=== PATIENT | male | born 1935 | race Caucasian/White ===

== ENCOUNTER 2023-05-21 05:36 | Inpatient (IN) | payer MEDICARE, OTHER ==
[2023-05-13 15:36] LABS: BASOPHILS # (AUTO) 0.1 X10'3 (0-0.2); EOSINOPHILS # (AUTO) 0.3 X10'3 (0-0.9); EOSINOPHILS % (AUTO) 5.9 % (0-6); LYMPHOCYTES # (AUTO) 1.2 X10'3 (1.1-4.8); LYMPHOCYTES % (AUTO) 22.1 % (21-51); MEAN CORPUSCULAR HEMOGLOBIN 31.6 PG (27.0-31.0); MEAN CORPUSCULAR HGB CONC 34.3 g/dL (33.0-36.5); MEAN CORPUSCULAR VOLUME 92.4 FL (78-98); MEAN PLATELET VOLUME 7.4 FL (7.4-10.4); MONOCYTES # (AUTO) 0.8 X10'3 (0-0.9); NEUTROPHILS # (AUTO) 3.1 X10'3 (1.8-7.7); PRE OP HEMOGLOBIN 11.7 g/dL (14.0-17.9); PRE OP PLATELET COUNT 240 X10'3 (140-440); PRE OP WHITE BLOOD COUNT 5.4 10'3 (4.8-10.8); RED BLOOD COUNT 3.69 X10'6 (4.70-6.10); RED CELL DISTRIBUTION WIDTH 14.1 % (11.5-14.5)
[2023-05-13 15:49] LABS: ALBUMIN 3.7 G/DL (3.4-5.0); ALBUMIN/GLOBULIN RATIO 0.9 (1.1-1.5); ALKALINE PHOSPHATASE 79 IU/L (46-116); BLOOD UREA NITROGEN 23 MG/DL (7-18); BUN/CREATININE RATIO 13.9 (10.0-20.0); CALCIUM 9.3 MG/DL (8.5-10.1); CHLORIDE 95 MMOL/L (99-107); CREATININE 1.65 MG/DL (0.60-1.10); PRE OP ALT 16 U/L (30-65); PRE OP ANION GAP 8 (8-16); PRE OP AST 31 U/L (10-37); PRE OP BILIRUB, TOTAL 0.5 MG/DL (0.0-1.0); PRE OP GLUCOSE 111 MG/DL (70-104); PRE OP POTASSIUM 4.4 MMOL/L (3.4-5.1); TOTAL CARBON DIOXIDE 25.2 MMOL/L (24-32); TOTAL PROTEIN 7.6 G/DL (6.4-8.2); eGFR 40 ML/MIN
[2023-05-13 15:51] LABS: PRE OP SODIUM 128 MMOL/L (135-145)
[~2023-05-21] VITALS: Ht 165.1 cm; Wt 83.7 kg
[2023-05-21] VITALS (38 sets, daily range): BP systolic 130–185; BP diastolic 71–103; PULSE 44–85; RESP 8–21; TEMP 96.8–98.1; O2SAT 64–99
[~2023-05-21 05:36] MED LIST: CARV3.122 PO; DOCUMENT DATE & TIME OF BETA-BLOCKER PO ONE; HYDR12.55 PO; NABU-141 PO; OMEP20CA16 PO; VALS160T2 PO; cefazolin 2gm/D5W 100mL 100 ML IV ONE; famotidine 20mg tablet PO ONE; ringers solution, lacted 1,000 ML IV SCH; tranexamic acid inj. 1,000 MG in normal saline IV soln 100ML IV ONE; vancomycin 1,500 MG in NS 300ml IV soln IV ONE
[2023-05-21 06:41] LABS: ISTAT CREATININE 1.4 mg/dL (0.8-1.3); ISTAT HGB 11.9 g/dl (14.0-17.9); ISTAT IONIZED CALCIUM 1.29 mmol/L (1.03-1.32); ISTAT K 4.4 mmol/L (3.5-5.1)
[2023-05-21] MEDS ORDERED: vancomycin 1,000mg inj ONE (06:41)
[2023-05-21] MEDS ORDERED: epiNEPHrine 1 mg/ml inj ONE (06:47)
[2023-05-21] MEDS ORDERED: morphine 10mg/ml inj. ONE (06:49)
[2023-05-21] MEDS ORDERED: ROPIVAcaine 0.5% (5mg/ml) 30ml vial ONE ×2 (06:49→10:57)
[2023-05-21] MEDS ORDERED: fentaNYL/PF 50MCG/1 ML 2ML syringe ONE (07:43)
[2023-05-21] MEDS ORDERED: MIDAZolam 1 MG/ML 5ML VIAL ONE (08:06)
[2023-05-21] MEDS ORDERED: morphine 2 MG/ML inj. syringe IV PRN (09:30)
[2023-05-21] MEDS ORDERED: ondansetron/PF 4mg/2ml inj IV PRN ×2 (09:30→11:20)
[2023-05-21] MEDS ORDERED: proCHLORperazine 10 MG/2 ml inj IV PRN (09:30)
[2023-05-21] MEDS ORDERED: morphine 4 MG/ML inj SYRINge IV PRN (09:30)
[2023-05-21] MEDS ORDERED: ringers solution, lacted 1,000 ML IV SCH (09:30)
[2023-05-21] MEDS ORDERED: meperidine/PF 25mg/ml syringe IV PRN ×2 (09:30)
[2023-05-21] MEDS ORDERED: propofol inj 20 ML IV ONE ×2 (10:57)
--- NOTE | 2023-05-21 11:01 | NUR ---
Received from OR via BED, accompanied by Anesthesiologist ALANNA and report given by Anesthesiolgist. PT IS AWAKE, MAINTAINING SAO2 AT 99% ON RA. MONITOR SB - RATE 48 OR ABOVE. VSS. DRESSING TO LLE ENCASED IN LEG WRAP. POWDER PACK ICE APPLIED. DENIES PAIN. WILL CONTINUE TO MONITOR AND TX NEEDED. MOVING UPPER EXTREMITIES WELL. 20G IV TO R OUTER ELBOW PATENT W/ LR RUNNING 100 ML/HR. FC IN PLACE DRAINING CLEAR LIGHT YELLOW URINE. 200 ML OUT OF OR. Addendum: 05/21/23 at 1131 by Ben Leon RN Amended: Links added. Addendum: 05/21/23 at 1909 by Ben Leon RN CATHETER FOR ON Q PUMP IN PLACE TO L UPPER THIGH, SECURED W/ TEGADERM. D&I. SCD TO RLE.
[2023-05-21] MEDS ORDERED: acetaminophen 325mg tablet PO PRN (11:20)
[2023-05-21] MEDS ORDERED: magnesium hydroxide 30ml (MOM) UD suspension PO PRN (11:20)
[2023-05-21] MEDS ORDERED: HYDROmorphone inj. 0.5 MG/0.5 ML DISP.SYRIN IV PRN (11:20)
[2023-05-21] MEDS ORDERED: bisacodyl 10mg suppository rectal RC PRN (11:20)
[2023-05-21] MEDS ORDERED: naloxone 0.4 mg/ml inj IV PRN (11:20)
[2023-05-21] MEDS ORDERED: diphenhydrAMINE 25mg capsule PO PRN ×2 (11:20)
[2023-05-21] MEDS: ROPIVAcaine 0.2% (10 MG/5 ML) BOLUS INJECTION ADDCANAL PRN (11:45)
[2023-05-21] MEDS: ROPIVAcaine 0.2%/PF PUMP/bolus 545 ML ADDCANAL SCH (12:26)
[2023-05-21] MEDS ORDERED: TRANEXAMIC ACID IV ONE (14:30)
[2023-05-21] MEDS ORDERED: NORMAL SALINE IV ONE (14:30)
[2023-05-21] MEDS: meperidine/PF 25mg/ml syringe IV PRN ×2 (14:49→16:17)
[2023-05-21] MEDS: potassium Cl 20mEq in NS 1,000 ML IV SCH ×4 (14:50→20:06)
[2023-05-21] MEDS: acetaminophen 325mg tablet PO SCH ×2 (14:52→20:06)
[2023-05-21] MEDS: gabapentin 300mg capsule PO SCH ×2 (14:52→21:23)
[2023-05-21] MEDS: oxyCODONE IR 5mg (immed. release) tablet PO PRN ×2 (16:39→22:29)
--- NOTE | 2023-05-21 17:31 | NUR ---
PT AWAKE AND ALERT THROUGHOUT RR STAY. EXTENDED STAY REQUIRED UNTIL BED AVAILABLE. MAINTAINED SAO2 ON RA AT >96%. ON Q PUMP INITIATED AND PT GIVEN INSTRUCTIONS RE: USE. NO PAIN UNTIL 1430 - PAIN INCREASED TO 4 AND MEDICATED W/ DEMEROL 12.5 MG. EMESIS AT 1530. PT HAD EATEN A LIGHT MEAL AND TAKEN TYLENOL AND NEURONTIN. CONTINUED TO HAVE PAIN - MEDICATED W/ OXYCODONE PRIOR TO TRANSFER. TRANSXAMIC ACID INFUSED ORDERED. L LEG WRAP W/ ICE INPLACE D&I. MONITOR SB DURING INTIAL HOURS IN RR, W/ OCCASIONAL ONE BEAT PAUSES. HR INCREASED TO WNL W/OUT PAUSES BY TIME OF TRANSFER. SCD TO RLE. TRANSFERRED TO 4012 AT 1731 PER GATITO SAAB. VERBAL REPORT TO KINA SAAB.
--- NOTE | 2023-05-21 17:52 | NUR ---
Received pt from pacu. Pt A&Ox4, on room air, on q pump at 10ml/hr. Oriented pt to room and call light.
--- NOTE | 2023-05-21 18:00 | NUR ---
Patient in room [facility]TH[facility] 4012. I have received report from [facility] Garcia and had the opportunity to ask questions and assume patient care.
[2023-05-21] MEDS: ceFAZolin/D5W- 1GM premix 50 ML IV SCH ×2 (18:11→23:55)
--- NOTE | 2023-05-21 18:35 | NUR ---
Problems reprioritized. Patient report given, questions answered & plan of care reviewed with Jie.
[2023-05-21] MEDS: HYDROmorphone 1 mg/ml syringe IV PRN ×2 (19:25→23:25)
[2023-05-21] MEDS ORDERED: vancomycin/NS 1 GM ADD-VANTAGE 250 ML IV SCH (20:00)
[2023-05-21] MEDS: sennosides 8.6mg tablet PO SCH (21:23)
[2023-05-22] VITALS (8 sets, daily range): BP systolic 130–179; BP diastolic 79–95; PULSE 66–96; RESP 16–18; TEMP 97.3–98.4; O2SAT 90–100
[2023-05-22] MEDS: acetaminophen 325mg tablet PO SCH ×4 (01:49→21:03)
[2023-05-22] MEDS: oxyCODONE IR 5mg (immed. release) tablet PO PRN ×2 (02:40→08:43)
[2023-05-22] MEDS: ROPIVAcaine 0.2% (10 MG/5 ML) BOLUS INJECTION ADDCANAL PRN (03:04)
[2023-05-22] MEDS: HYDROmorphone 1 mg/ml syringe IV PRN ×2 (05:19→10:07)
--- NOTE | 2023-05-22 06:11 | NUR ---
Problems reprioritized. Patient report given, questions answered & plan of care reviewed with ANI Ogden.
[2023-05-22] MEDS: gabapentin 300mg capsule PO SCH ×3 (07:20→21:02)
[2023-05-22] MEDS: HYDROchlorothiazide 12.5mg capsule PO SCH (08:42)
[2023-05-22] MEDS: potassium Cl 20mEq in NS 1,000 ML IV SCH (08:43)
[2023-05-22] MEDS: enoxaparin 40mg/0.4ml syringe SQ SCH (08:44)
[2023-05-22] MEDS: carVEDilol 3.125mg tablet PO SCH ×2 (08:44→21:02)
--- NOTE | 2023-05-22 11:57 | NUR ---
Joint surgery consult: Pt is s/p knee surgery per EMR. Per EMR pt has a 10 out of 10 pain intensity therefore not appropriate for high protein nutrition education discussion at this time. Due to short staffing placed high protein nutrition handout in pt's chart with RD contact information. Will remain available for any nutrition questions or concerns. Addendum: 05/22/23 at [address] Amended: Links added.
--- NOTE | 2023-05-22 13:34 | NUR ---
charting reviewed with Student RN Addendum: 05/22/23 at 1335 by Federico Garner INSTRUCTOR [facility] Amended: Links added.
[2023-05-22] MEDS: losartan 50mg tablet PO SCH (16:41)
--- NOTE | 2023-05-22 17:45 | NUR ---
BRUSH CLEARING LABORER documentation: I have reviewed and agree with all interventions, assessments performed and documented by ANI Ogden and relinquish all care to her.
[2023-05-22] MEDS: sennosides 8.6mg tablet PO SCH (21:03)
[2023-05-22] MEDS: celeCOXIB 100mg capsule PO SCH (21:03)
[2023-05-22] MEDS: pantoprazole 40mg Tablet.DR PO SCH (21:04)
[2023-05-23] MEDS: potassium Cl 20mEq in NS 1,000 ML IV SCH ×2 (01:34→10:15)
[2023-05-23] MEDS: acetaminophen 325mg tablet PO SCH ×2 (01:36→07:19)
[2023-05-23] MEDS: oxyCODONE IR 5mg (immed. release) tablet PO PRN ×4 (01:37→19:54)
--- NOTE | 2023-05-23 05:45 | NUR ---
PT DECLINING TO HAVE GONZALEZ CATHETER REMOVED UNTIL SEEN BY PHYSICAL THERAPY
[2023-05-23 06:00] VITALS: BP 150/83; PULSE 98; RESP 16; TEMP 97.1; O2SAT 94
--- NOTE | 2023-05-23 06:35 | NUR ---
Patient in room [facility]TH[facility] 4012. I have received report from PEDRO LAW and had the opportunity to ask questions and assume patient care.
[2023-05-23] MEDS: enoxaparin 40mg/0.4ml syringe SQ SCH (07:14)
[2023-05-23] MEDS: HYDROchlorothiazide 12.5mg capsule PO SCH (07:15)
[2023-05-23] MEDS: gabapentin 300mg capsule PO SCH ×3 (07:16→20:48)
[2023-05-23] MEDS: celeCOXIB 100mg capsule PO SCH ×2 (07:16→19:53)
[2023-05-23] MEDS: losartan 50mg tablet PO SCH (07:16)
[2023-05-23] MEDS: carVEDilol 3.125mg tablet PO SCH ×2 (07:16→19:54)
[2023-05-23] MEDS: HYDROmorphone 1 mg/ml syringe IV PRN ×2 (09:06→15:43)
--- NOTE | 2023-05-23 09:08 | NUR ---
ERLINDA GONZALEZ, PT. TOLERATED WELL. 250ML URINE DRAINED. WILL MONITOR FOR RETENTION.
[2023-05-23] MEDS: ROPIVAcaine 0.2%/PF PUMP/bolus 545 ML ADDCANAL SCH (09:30)
[2023-05-23 10:00] VITALS: BP 133/71; PULSE 80; RESP 16; TEMP 97.4; O2SAT 94
[2023-05-23] MEDS ORDERED: acetaminophen 325mg tablet PO PRN (11:20)
[2023-05-23 12:12] VITALS: RESP 14; O2SAT 94
[2023-05-23 18:00] VITALS: BP 150/87; PULSE 103; RESP 17; TEMP 97.3; O2SAT 93
--- NOTE | 2023-05-23 18:29 | NUR ---
Problems reprioritized. Patient report given to paige SAAB, questions answered & plan of care reviewed with .
--- NOTE | 2023-05-23 18:38 | NUR ---
Patient in room [facility]TH[facility] 4012. I have received report from LILLIAN SAAB and had the opportunity to ask questions and assume patient care.
[2023-05-23 20:30] VITALS: RESP 17; O2SAT 93
[2023-05-23] MEDS: sennosides 8.6mg tablet PO SCH (20:48)
[2023-05-23] MEDS: pantoprazole 40mg Tablet.DR PO SCH (20:48)
[2023-05-24] MEDS: oxyCODONE IR 5mg (immed. release) tablet PO PRN ×4 (02:14→19:19)
[2023-05-24 06:00] VITALS: BP 115/74; PULSE 93; RESP 18; TEMP 98.5; O2SAT 92
--- NOTE | 2023-05-24 06:35 | NUR ---
Patient in room ORTH[facility] 4012. I have received report from TAMARA SAAB and had the opportunity to ask questions and assume patient care.
--- NOTE | 2023-05-24 06:36 | NUR ---
Problems reprioritized. Patient report given, questions answered & plan of care reviewed with LILLIAN SAAB.
[2023-05-24] MEDS: ROPIVAcaine 0.2% (10 MG/5 ML) BOLUS INJECTION ADDCANAL PRN (07:49)
[2023-05-24] MEDS: HYDROchlorothiazide 12.5mg capsule PO SCH (07:49)
[2023-05-24] MEDS: gabapentin 300mg capsule PO SCH ×3 (07:49→21:47)
[2023-05-24] MEDS: enoxaparin 40mg/0.4ml syringe SQ SCH (07:53)
[2023-05-24] MEDS: celeCOXIB 100mg capsule PO SCH ×2 (07:54→19:18)
[2023-05-24] MEDS: carVEDilol 3.125mg tablet PO SCH ×2 (07:54→19:18)
[2023-05-24] MEDS: losartan 50mg tablet PO SCH (07:54)
[2023-05-24 09:48] VITALS: RESP 18; O2SAT 92
[2023-05-24 10:00] VITALS: BP 114/69; PULSE 93; RESP 18; TEMP 97.9; O2SAT 94
[2023-05-24 18:00] VITALS: BP 130/81; PULSE 96; RESP 20; TEMP 97.7; O2SAT 100
--- NOTE | 2023-05-24 18:38 | NUR ---
Problems reprioritized. Patient report given TO TAMARA SAAB, questions answered & plan of care reviewed with .
--- NOTE | 2023-05-24 19:09 | NUR ---
Patient in room [facility]TH[facility] 4012. I have received report from LILLIAN SAAB and had the opportunity to ask questions and assume patient care.
[2023-05-24] MEDS: sennosides 8.6mg tablet PO SCH (21:47)
[2023-05-24] MEDS: pantoprazole 40mg Tablet.DR PO SCH (21:47)
[2023-05-24 22:00] VITALS: BP 115/75; PULSE 102; RESP 16; TEMP 98.8; O2SAT 95
--- NOTE | 2023-05-25 06:40 | NUR ---
Problems reprioritized. Patient report given, questions answered & plan of care reviewed with DEWAYNE LAW.
[2023-05-25] MEDS: oxyCODONE IR 5mg (immed. release) tablet PO PRN ×2 (07:58→13:01)
[2023-05-25] MEDS: celeCOXIB 100mg capsule PO SCH (07:59)
[2023-05-25] MEDS: gabapentin 300mg capsule PO SCH ×2 (07:59→13:00)
[2023-05-25] MEDS: HYDROchlorothiazide 12.5mg capsule PO SCH (07:59)
[2023-05-25] MEDS: carVEDilol 3.125mg tablet PO SCH (07:59)
[2023-05-25] MEDS: losartan 50mg tablet PO SCH (07:59)
[2023-05-25] MEDS: enoxaparin 40mg/0.4ml syringe SQ SCH (08:00)
[2023-05-25 10:00] VITALS: BP 138/87; PULSE 78; RESP 17; TEMP 97.7; O2SAT 78
[2023-05-25 13:01] VITALS: RESP 17
--- NOTE | 2023-05-25 18:06 | NUR ---
FLEXOGRAPHIC PRESS SET UP OPERATOR documentation: I have reviewed and agree with all interventions, assessments performed and documented by Aziza LAW.
== END 2023-05-25 16:57 | DRG 470 ==
LOC: PAS 05:36 → EDSTATUS 07:30 → ORTHO 4S 11:21
PROVIDERS: ADMIT Orthopaedic Surgery; ATTEND Orthopaedic Surgery
PROC: 0JH80WZ Insertion of Totally Implantable Vascular Access Device into Abdomen Subcutaneous Tissue and Fascia, Open Approach (ICD-10-PCS; 2023-05-21)
PROC: 0SRD0J9 Replacement of Left Knee Joint with Synthetic Substitute, Cemented, Open Approach (ICD-10-PCS; principal; 2023-05-21 07:36)
DX: M17.12 Unilateral primary osteoarthritis, left knee (principal); Z96.651 Presence of right artificial knee joint; I10 Essential (primary) hypertension
CPT/HCPCS: 36415; 73560; 80047; 80053; 82948; 85025; 87081; 97110; 97116; 97161; 97530; 97535; A4215; A6253; A6258; A6446; A6449; A7000; C1713; C1758; C1776; C9250; G0378; J0171; J0690; J0780; J1170; J1650; J2175; J2250; J2274; J2405; J2704; J2795; J3010; J3370; J3480; J3490; J7120

== ENCOUNTER 2023-06-02 11:01 | Inpatient (IN) | payer MEDICARE, OTHER ==
[~2023-06-02] VITALS: Ht 172.7 cm; Wt 85.7 kg
[~2023-06-02 11:01] MED LIST changes: -DOCUMENT DATE & TIME OF BETA-BLOCKER PO ONE; -cefazolin 2gm/D5W 100mL 100 ML IV ONE; -famotidine 20mg tablet PO ONE; -ringers solution, lacted 1,000 ML IV SCH; -tranexamic acid inj. 1,000 MG in normal saline IV soln 100ML IV ONE; -vancomycin 1,500 MG in NS 300ml IV soln IV ONE
[2023-06-02 11:29] LABS: BASOPHILS # (AUTO) 0.1 X10'3 (0-0.2); EOSINOPHILS # (AUTO) 0.6 X10'3 (0-0.9); EOSINOPHILS % (AUTO) 10.3 % (0-6); HEMOGLOBIN 8.6 g/dl (14.0-17.9); LYMPHOCYTES % (AUTO) 18.3 % (21-51); MEAN CORPUSCULAR HEMOGLOBIN 30.6 PG (27.0-31.0); MEAN CORPUSCULAR VOLUME 92.7 FL (78-98); MEAN PLATELET VOLUME 7.1 FL (7.4-10.4); MONOCYTES # (AUTO) 0.8 X10'3 (0-0.9); MONOCYTES % (AUTO) 13.8 % (2-12); NEUTROPHILS # (AUTO) 3.1 X10'3 (1.8-7.7); NEUTROPHILS % (AUTO) 56.6 % (42-75); PLATELET COUNT 433 X10'3 (140-440); RED BLOOD COUNT 2.81 X10'6 (4.70-6.10); WHITE BLOOD COUNT 5.5 X10'3 (4.5-11.0)
[2023-06-02 11:43] LABS: ALANINE AMINOTRANSFERASE 18 U/L (12-78); ALBUMIN 3.2 G/DL (3.4-5.0); ALBUMIN/GLOBULIN RATIO 0.8 (1.1-1.5); ALKALINE PHOSPHATASE 68 IU/L (46-116); ANION GAP 10 (8-16); ASPARTATE AMINO TRANSFERASE 32 U/L (10-37); BLOOD UREA NITROGEN 32 MG/DL (7-18); BUN/CREATININE RATIO 16.6 (10.0-20.0); CHLORIDE 91 MMOL/L (99-107); CREATININE 1.93 MG/DL (0.60-1.10); GLUCOSE 115 MG/DL (70-104); POTASSIUM 4.4 MMOL/L (3.5-5.1); SODIUM 124 MMOL/L (135-145); TOTAL CARBON DIOXIDE 22.7 MMOL/L (24-32); TOTAL PROTEIN 7.1 G/DL (6.4-8.2); eCRCL 27 ML/MIN; eGFR 33 ML/MIN
[2023-06-02 11:52] LABS: PRO BRAIN NATRIURETIC PEPTIDE 14650 PG/ML (0-450)
[2023-06-02] MEDS ORDERED: iohexol 350MG/ML 100ml bottle IV ONE (13:47)
[2023-06-02] MEDS ORDERED: aspirin 325mg tablet, delayed-release (Ecotrin) PO ONE (14:05)
[2023-06-02] MEDS ORDERED: nitroGLYCERIN 1gm ointment UD TP ONE (14:05)
--- NOTE | 2023-06-02 14:22 | NUR ---
dr. ferrer relayed that lovenox dose was for now. Pharmacy on the phone.
[2023-06-02] MEDS ORDERED: enoxaparin 100mg/ml syringe SQ ONE (14:23)
[2023-06-02] MEDS ORDERED: HYDROcodone/acetaminophen 5mg/325mg tablet PO ONE (14:35)
--- NOTE | 2023-06-02 15:11 | NUR ---
PT WITH INCREASED SOB. PT PLACED ON 3L NC.
[2023-06-02] MEDS ORDERED: mag hydrox/Alum hydrox/simeth 30ml oral suspension PO PRN (15:25)
[2023-06-02] MEDS ORDERED: morphine 2 MG/ML inj. syringe IV PRN ×2 (15:25)
[2023-06-02] MEDS ORDERED: HYDROcodone/acetaminophen 5mg/325mg tablet PO PRN (15:25)
[2023-06-02] MEDS ORDERED: magnesium 4gm in 100ml NS 100 ML IV PRN (15:25)
[2023-06-02] MEDS ORDERED: magnesium hydroxide 30ml (MOM) UD suspension PO PRN (15:25)
[2023-06-02] MEDS ORDERED: magnesium Cl slow-release 64mg tablet PO PRN (15:25)
[2023-06-02] MEDS ORDERED: ondansetron/PF 4mg/2ml inj IV PRN (15:25)
[2023-06-02] MEDS ORDERED: potassium Cl 20 mEq SR tablet PO PRN ×2 (15:25)
[2023-06-02] MEDS ORDERED: magnesium 2GM in 50ml NS 50 ML IV PRN (15:25)
[2023-06-02] MEDS ORDERED: acetaminophen 325mg tablet PO PRN (15:25)
[2023-06-02] MEDS ORDERED: potassium Cl 40MEQ/1/2NS 520ml 520 ML IV PRN (15:25)
[2023-06-02] MEDS ORDERED: ACET-890 PO (15:49)
[2023-06-02] MEDS ORDERED: MULT-1085 PO (15:49)
[2023-06-02] MEDS: furosemide 40mg/4ml inj IV SCH (16:26)
--- NOTE | 2023-06-02 16:51 | NUR ---
CONDOM CATHETER APPLIED. PT TOLERATED WELL.
--- NOTE | 2023-06-02 17:31 | NUR ---
Pt family requesting to speak to Dr. Dr. Lizz trent.
[2023-06-02] MEDS: HYDROcodone/acetaminophen 10/325mg tab PO PRN (20:02)
[2023-06-02] MEDS: K and/or MAG REPLACEMENT MC SCH (23:15)
[2023-06-02] MEDS: docusate sod 100mg capsule PO SCH (23:16)
[2023-06-03] MEDS: HYDROcodone/acetaminophen 10/325mg tab PO PRN ×2 (00:05→08:43)
[2023-06-03 07:08] LABS: EOSINOPHILS # (AUTO) 0.6 X10'3 (0-0.9); EOSINOPHILS % (AUTO) 12.3 % (0-6); HEMATOCRIT 23.8 % (42.0-52.0); HEMOGLOBIN 8.1 g/dl (14.0-17.9); LYMPHOCYTES # (AUTO) 1.3 X10'3 (1.1-4.8); MEAN CORPUSCULAR HEMOGLOBIN 31.5 PG (27.0-31.0); MEAN CORPUSCULAR HGB CONC 34.1 g/dL (33.0-36.5); MEAN CORPUSCULAR VOLUME 92.5 FL (78-98); MEAN PLATELET VOLUME 7.3 FL (7.4-10.4); MONOCYTES # (AUTO) 0.7 X10'3 (0-0.9); MONOCYTES % (AUTO) 14.6 % (2-12); NEUTROPHILS # (AUTO) 2.4 X10'3 (1.8-7.7); NEUTROPHILS % (AUTO) 47.1 % (42-75); PLATELET COUNT 394 X10'3 (140-440); RED BLOOD COUNT 2.57 X10'6 (4.70-6.10); RED CELL DISTRIBUTION WIDTH 14.3 % (11.5-14.5); WHITE BLOOD COUNT 5.1 X10'3 (4.5-11.0)
[2023-06-03 07:35] LABS: % IRON SATURATION 15 % (11-46); IRON 32 UG/DL (53-167); TOTAL IRON BINDING CAPACITY 216 UG/DL (259-388)
[2023-06-03] MEDS: docusate sod 100mg capsule PO SCH (07:58)
[2023-06-03] MEDS: K and/or MAG REPLACEMENT MC SCH (08:00)
[2023-06-03] MEDS ORDERED: enoxaparin 40mg/0.4ml syringe SUBCUT SCH (08:00)
[2023-06-03 08:04] LABS: ALANINE AMINOTRANSFERASE 19 U/L (12-78); ALBUMIN 2.8 G/DL (3.4-5.0); ALBUMIN/GLOBULIN RATIO 0.8 (1.1-1.5); ALKALINE PHOSPHATASE 62 IU/L (46-116); ANION GAP 10 (8-16); ASPARTATE AMINO TRANSFERASE 24 U/L (10-37); BILIRUBIN,TOTAL 0.8 MG/DL (0.1-1.0); BLOOD UREA NITROGEN 31 MG/DL (7-18); BUN/CREATININE RATIO 16.1 (10.0-20.0); CALCIUM 8.7 MG/DL (8.5-10.1); CHLORIDE 95 MMOL/L (99-107); CREATININE 1.92 MG/DL (0.60-1.10); FERRITIN 866 NG/ML (26-388); GLUCOSE 93 MG/DL (70-104); MAGNESIUM 2.2 MG/DL (1.5-2.4); POTASSIUM 4.1 MMOL/L (3.5-5.1); PRO BRAIN NATRIURETIC PEPTIDE 18278 PG/ML (0-450); SODIUM 128 MMOL/L (135-145); TOTAL CARBON DIOXIDE 22.8 MMOL/L (24-32); TOTAL PROTEIN 6.4 G/DL (6.4-8.2); eCRCL 27 ML/MIN; eGFR 33 ML/MIN
[2023-06-03] MEDS: furosemide 40mg/4ml inj IV SCH (08:36)
[2023-06-03] MEDS ORDERED: FURO-150 PO (10:06)
--- NOTE | 2023-06-03 12:36 | NUR ---
SPOKE WITH DR. ALVARADO ABOUT HOME OXYGEN REQUIREMENTS. PER MD, PT DOES NOT REQUIRE OXYGEN AT HOME.
[2023-06-03 13:08] VITALS: BP 124/71; PULSE 82; RESP 15; TEMP 97.9; O2SAT 95
== END 2023-06-03 13:03 | disposition home or self-care (01) | DRG 280 ==
LOC: ER 11:01 → ED HOLD 15:27
PROVIDERS: ADMIT Internal Medicine; ATTEND Internal Medicine
PROC: B32T1ZZ Computerized Tomography (CT Scan) of Left Pulmonary Artery using Low Osmolar Contrast (ICD-10-PCS; principal; 2023-06-02)
PROC: B3201ZZ Computerized Tomography (CT Scan) of Thoracic Aorta using Low Osmolar Contrast (ICD-10-PCS; 2023-06-02)
PROC: B32S1ZZ Computerized Tomography (CT Scan) of Right Pulmonary Artery using Low Osmolar Contrast (ICD-10-PCS; 2023-06-02)
DX: I13.0 Hypertensive heart and chronic kidney disease with heart failure and stage 1 through stage 4 chronic kidney disease, or unspecified chronic kidney disease (principal); I21.4 Non-ST elevation (NSTEMI) myocardial infarction; I50.23 Acute on chronic systolic (congestive) heart failure; I21.A1 Myocardial infarction type 2; E87.1 Hypo-osmolality and hyponatremia; J90 Pleural effusion, not elsewhere classified; N17.9 Acute kidney failure, unspecified; R07.9 Chest pain, unspecified; N18.9 Chronic kidney disease, unspecified; Z96.653 Presence of artificial knee joint, bilateral; D64.9 Anemia, unspecified; Z20.822 Contact with and (suspected) exposure to COVID-19; R91.8 Other nonspecific abnormal finding of lung field; N40.0 Benign prostatic hyperplasia without lower urinary tract symptoms; M19.90 Unspecified osteoarthritis, unspecified site; Z79.899 Other long term (current) drug therapy; Z87.891 Personal history of nicotine dependence
CPT/HCPCS: 36415; 71045; 71275; 80053; 82607; 82728; 83540; 83550; 83605; 83735; 83880; 84484; 85025; 87040; 87502; 87503; 87811; 93306; 93971; 96372; 99285; A4314; A4349; A4615; A6449; G0378; J1650; J1940; J3490; Q9967

== ENCOUNTER 2024-05-17 12:02 | Outpatient (CLI) | payer MEDICARE, OTHER ==
[~2024-05-17 12:02] MED LIST changes: -CARV3.122 PO; +ENOX30SY10 IV; +EVOL140S2 SUBCUT; -HYDR12.55 PO; +MULT-1085 PO
== END 2024-05-17 23:59 | disposition home or self-care (01) ==
LOC: LAB 12:02
PROVIDERS: ATTEND Orthopaedic Surgery
DX: M79.81 Nontraumatic hematoma of soft tissue (principal)
CPT/HCPCS: 87070